=== PATIENT | male | born 1985 | race Caucasian/White ===

== ENCOUNTER 2016-05-30 07:41 | Emergency (ER) | payer SELFPAY ==
[2016-05-30 07:52] VITALS: TEMP 97.2
[2016-05-30] MEDS ORDERED: NITROGLYCERIN 0.4 MG 25 EA TAB SL ONE (08:29)
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
[2016-05-30 08:48] VITALS: BP 146/89; O2SAT 97
== END 2016-05-30 08:43 | disposition home or self-care (01) ==
LOC: ER 07:41
DX: S61.412A Laceration without foreign body of left hand, initial encounter (principal); W27.8XXA Contact with other nonpowered hand tool, initial encounter; Z87.891 Personal history of nicotine dependence

== ENCOUNTER 2018-01-14 01:23 | Emergency (ER) | payer SELFPAY ==
[2018-01-14] MEDS ORDERED: KETOROLAC TROMETHAMINE INJ 60 MG/2 ML VIAL IM ONE (01:42)
[2018-01-14] MEDS ORDERED: AMOXICILLIN & POT CLAVULANATE 875 MG TAB PO ONE (01:43)
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
[2018-01-14 01:58] VITALS: BP 126/92; TEMP 97.8; O2SAT 97
== END 2018-01-14 01:57 | disposition home or self-care (01) ==
LOC: ER 01:23
DX: K04.7 Periapical abscess without sinus (principal); K02.9 Dental caries, unspecified; K05.10 Chronic gingivitis, plaque induced; Z87.891 Personal history of nicotine dependence

== ENCOUNTER 2019-10-02 09:05 | Emergency (ER) | payer SELFPAY ==
[2019-10-02 09:23] VITALS: BP 127/87; TEMP 98.3; O2SAT 97
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
== END 2019-10-02 09:31 | disposition home or self-care (01) ==
LOC: ER 09:05
DX: K02.9 Dental caries, unspecified (principal); K08.89 Other specified disorders of teeth and supporting structures; K05.00 Acute gingivitis, plaque induced; F17.200 Nicotine dependence, unspecified, uncomplicated